=== PATIENT | female | born 1990 | race Caucasian/White ===

== ENCOUNTER → 2016-04-30 | Outpatient (CLI) | payer BC ==
[2016-04-30 16:05] LABS: CH 32.3; CHCM 35.6; HCT 39.2 % (34.0-46.0); HDW 2.95; HGB 13.3 gm/dL (11.4-16.0); MCH 31.1 pg (25.0-35.0); MCV 91.3 fL (80.0-100.0); Mean Platelet Volume 7.2; RBC 4.29 m/uL (3.80-5.40); RDW 13.4 % (11.5-15.5); WBC 9.2 k/uL (3.8-10.6)
[2016-04-30 16:16] LABS: Glucose 81 mg/dL (74-99); Non-African American GFR(MDRD) >60 (>60 ml/min/1.73 sqM)
[2016-04-30 16:47] LABS: Hepatitis B Surface Ag Index 0.07
[2016-05-01 06:48] LABS: HIV-1/HIV-2 Ab Screen NONREAC (NON REAC)
== END | disposition home or self-care (01) ==
LOC: LABWHC1 14:44
PROVIDERS: ATTEND Obstetrics & Gynecology
DX: Z34.00 Encounter for supervision of normal first pregnancy, unspecified trimester (principal); Z3A.00 Weeks of gestation of pregnancy not specified
CPT/HCPCS: 36415; 82565; 82947; 85027; 86762; 86777; 86778; 86780; 86850; 86900; 86901; 87340; 87389

== ENCOUNTER → 2016-07-09 | Outpatient (CLI) | payer BC ==
[2016-07-09 12:03] LABS: CHCM 34.5; HDW 2.97; HGB 12.5 gm/dL (11.4-16.0); MCH 32.7 pg (25.0-35.0); MCHC 33.9 g/dL (31.0-37.0); MCV 96.5 fL (80.0-100.0); Mean Platelet Volume 6.7; RBC 3.84 m/uL (3.80-5.40); RDW 13.7 % (11.5-15.5)
== END ==
LOC: LABWHC1 10:35
PROVIDERS: ATTEND Obstetrics & Gynecology
DX: Z34.02 Encounter for supervision of normal first pregnancy, second trimester (principal); Z3A.00 Weeks of gestation of pregnancy not specified
CPT/HCPCS: 36415; 82950; 85027

== ENCOUNTER 2016-08-24 22:22 | Emergency (ER) | payer BC, OTHER ==
[2016-08-24] MEDS ORDERED: METOCLOPRAMIDE 5 MG/ML 2 ML VIAL IVP STA (22:39)
[2016-08-24] MEDS ORDERED: SODIUM CHLORIDE 0.9% 1,000 ML IV STA (22:39)
[2016-08-24] MEDS ORDERED: diphenhydrAMINE 50 MG/ML 1 ML VIAL IVP STA (22:39)
--- NOTE | 2016-08-24 22:42 | ED ---
Headache HPI - General Chief Complaint: Headache Stated Complaint: swelling/headache/vomiting Time Seen by Provider: 08/24/16 22:35 Source: RN notes reviewed Mode of arrival: ambulatory Limitations: no limitations - History of Present Illness Initial Comments: 18-year-old female presents to the emergency department with a chief complaint of headache. Patient states she is 35 weeks . Patient states that she does have a history of migraines and states this is much like her normal migraine. Patient states she does have nausea with this symptom and she didn't vomit on the way here. Patient states that she has noticed some mild swelling to her lower extremities but she states nothing extreme. Patient states she is a . Patient states she has a having complications in this . Patient states she was concerned due to the mild headache so she thought that she should be evaluated. Patient denies any recent fever, chills, shortness of breath, chest pain, back pain, abdominal pain, nausea vomiting, numbness or tingling, dysuria or hematuria, constipation or diarrhea, visual changes, or any other current symptoms. - Related Data Home Medications Medication Instructions Recorded Confirmed Acetaminophen [Tylenol] 500 mg PO Q4-6H PRN 08/24/16 08/24/16 Acetaminophen [Tylenol] 650 mg PO Q4H PRN 08/24/16 08/24/16 Cephalexin [Keflex] 500 mg PO BID 08/24/16 08/24/16 Pnv,Calcium 72/Iron/Folic Acid 1 tab PO DAILY 08/24/16 08/24/16 [ Plus Tablet] Allergies Allergy/AdvReac Type Severity Reaction Status Date / Time No Known Allergies Allergy Verified 08/24/16 23:05 Review of Systems ROS Statement: Those systems with pertinent positive or pertinent negative responses have been documented in the HPI. ROS Other: All systems not noted in ROS Statement are negative. Past Medical History Past Medical History: No Reported History History of Any Multi-Drug Resistant Organisms: None Reported Past Surgical History: Adenoidectomy Past Psychological History: No Psychological Hx Reported Smoking Status: Never smoker Past Alcohol Use History: None Reported Past Drug Use History: None Reported General Exam - General Exam Comments Initial Comments: General: The patient is awake and alert, in no distress, and does not appear acutely ill. Eye: Pupils are equal, round and reactive to light, extra-ocular movements are intact; there is normal conjunctiva bilaterally. No signs of icterus. Ears, nose, mouth and throat: There are moist mucous membranes. Neck: The neck is supple, there is no tenderness. Cardiovascular: There is a regular rate and rhythm. No murmur, rub or gallop is appreciated. Respiratory: Lungs are clear to auscultation, respirations are non-labored, breath sounds are equal. No wheezes, stridor, rales, or rhonchi. Gastrointestinal: Soft, non-distended, non-tender abdomen without masses or organomegaly noted. There is no rebound or guarding present. No CVA tenderness. Bowel sounds are unremarkable. Back: There is no tenderness to palpation in the midline. There is no obvious deformity. No rashes noted. Musculoskeletal: Normal ROM, no tenderness, There is no pedal edema. There is no calf tenderness or swelling. Sensation intact. Pulses equal bilaterally 2+. Neurological: CN II-XII intact, There are no obvious motor or sensory deficits. Coordination appears grossly intact. Speech is normal. Skin: Skin is warm and dry and no rashes or lesions are noted. Psychiatric: Cooperative, appropriate mood & affect, normal judgment. Limitations: no limitations Course Vital Signs 08/24/16 08/24/16 08/25/16 22:23 23:37 00:33 Temperature 98.7 F 97.8 F 97.6 F Pulse Rate 102 H 75 71 Respiratory 18 18 18 Rate Blood Pressure 131/74 120/60 110/56 O2 Sat by Pulse 97 100 99 Oximetry Medical Decision Making - Medical Decision Making 26-year-old female presents emergency Department chief complaint of headache and . Patient does have a history of migraines and states this is much like her typical migraines. This time patient's headache has resolved. Patient has no protein in the urine. Patient is appropriate with blood pressure. This time she is feeling better with fluids and medications. This time we discussed close follow-up with MANAGER LSW. MANAGER LSW to evaluate the patient and states the patient is cleared to go home. This time she will be discharged. Patient is in agreement plan all questions have been answered. Patient does appear to have bacteria in the urine however she is currently on Keflex being treated for UTI. This time we will culture it and have patient continue her antibiotics. - Lab Data Result diagrams: 08/24/16 22:54 08/24/16 22:54 Lab Results 08/24/16 08/24/16 08/24/16 Range/Units 22:38 22:54 22:54 WBC 9.3 (3.8-10.6) k/uL RBC 4.05 (3.80-5.40) m/uL Hgb 13.3 (11.4-16.0) gm/dL Hct 38.5 (34.0-46.0) % MCV 95.2 (80.0-100.0) fL MCH 32.9 (25.0-35.0) pg MCHC 34.5 (31.0-37.0) g/dL RDW 13.8 (11.5-15.5) % Plt Count 250 (150-450) k/uL Neutrophils % 72 % Lymphocytes % 18 % Monocytes % 6 % Eosinophils % 1 % Basophils % 1 % Neutrophils # 6.7 (1.3-7.7) k/uL Lymphocytes # 1.7 (1.0-4.8) k/uL Monocytes # 0.6 (0-1.0) k/uL Eosinophils # 0.1 (0-0.7) k/uL Basophils # 0.1 (0-0.2) k/uL Sodium 140 (137-145) mmol/L Potassium 4.3 (3.5-5.1) mmol/L Chloride 109 H (98-107) mmol/L Carbon Dioxide 24 (22-30) mmol/L Anion Gap 7 mmol/L BUN 6 L (7-17) mg/dL Creatinine 0.60 (0.52-1.04) mg/dL Est GFR (MDRD) Af Amer >60 (>60 ml/min/1.73 sqM) Est GFR (MDRD) Non-Af >60 (>60 ml/min/1.73 sqM) Glucose 82 (74-99) mg/dL Calcium 9.3 (8.4-10.2) mg/dL Phosphorus 3.6 (2.5-4.5) mg/dL Magnesium 1.9 (1.6-2.3) mg/dL Total Bilirubin 0.6 (0.2-1.3) mg/dL AST 21 (14-36) U/L ALT 27 (9-52) U/L Alkaline Phosphatase 138 H (38-126) U/L Total Protein 6.2 L (6.3-8.2) g/dL Albumin 3.3 L (3.5-5.0) g/dL Urine Color Yellow Urine Appearance Cloudy H (Clear) Urine pH 7.5 (5.0-8.0) Ur Specific [place] 1.007 (1.001-1.035) Urine Protein Negative (Negative) Urine Glucose (UA) Negative (Negative) Urine Ketones Negative (Negative) Urine Blood Negative (Negative) Urine Nitrite Negative (Negative) Urine Bilirubin Negative (Negative) Urine Urobilinogen <2.0 (<2.0) mg/dL Ur Leukocyte Esterase Large H (Negative) Urine RBC 6 H (0-5) /hpf Urine WBC 22 H (0-5) /hpf Ur Squamous Epith Cells 8 H (0-4) /hpf Urine Bacteria Few H (None) /hpf Disposition Clinical Impression: Headache Disposition: HOME SELF-CARE Condition: Stable Instructions: Acute Headache (ED) Additional Instructions: Please use medication as discussed. Please follow up with family doctor if symptoms have not improved over the next two days. Please return to the emergency room if your symptoms increase or worsen or for any other concerns. Referrals: Shelly Mendoza MD [STAFF PHYSICIAN] - 1-2 days Time of Disposition: 00:43
[2016-08-24 22:50] VITALS: RESP 18
[2016-08-24 23:14] LABS: Basophils # (A) 0.1 k/uL (0-0.2); Basophils % (A) 1 %; CH 33.7; CHCM 35.7; Eosinophils # (A) 0.1 k/uL (0-0.7); Eosinophils % (A) 1 %; HCT 38.5 % (34.0-46.0); HDW 3.06; HGB 13.3 gm/dL (11.4-16.0); Luc # (Auto) 0.19; Luc % (Auto) 2; Lymphocytes # (A) 1.7 k/uL (1.0-4.8); Lymphocytes % (A) 18 %; MCH 32.9 pg (25.0-35.0); MCHC 34.5 g/dL (31.0-37.0); MCV 95.2 fL (80.0-100.0); Mean Platelet Volume 7.1; Monocytes # (A) 0.6 k/uL (0-1.0); Monocytes % (A) 6 %; Neutrophils # (A) 6.7 k/uL (1.3-7.7); Neutrophils % (A) 72 %; RBC 4.05 m/uL (3.80-5.40); RDW 13.8 % (11.5-15.5); WBC 9.3 k/uL (3.8-10.6); WBC (Perox) 9.47
[2016-08-24 23:24] LABS: ALT 27 U/L (9-52); AST 21 U/L (14-36); Alkaline Phosphatase 138 U/L (38-126); Anion Gap 7 mmol/L; Blood Urea Nitrogen 6 mg/dL (7-17); Calcium 9.3 mg/dL (8.4-10.2); Carbon Dioxide 24 mmol/L (22-30); Chloride 109 mmol/L (98-107); Glucose 82 mg/dL (74-99); Magnesium 1.9 mg/dL (1.6-2.3); Non-African American GFR(MDRD) >60 (>60 ml/min/1.73 sqM); Phosphorous 3.6 mg/dL (2.5-4.5); Potassium 4.3 mmol/L (3.5-5.1); Sodium 140 mmol/L (137-145); Total Bilirubin 0.6 mg/dL (0.2-1.3); Total Protein 6.2 g/dL (6.3-8.2)
[2016-08-25 00:22] LABS: Appearance,Urine Cloudy (Clear); Bacteria,Urine Few /hpf; Bilirubin,Urine Negative (Negative); Glucose,Urine (UA) Negative (Negative); Ketones,Urine Negative (Negative); Leukocyte Esterase,Urine Large (Negative); Nitrite,Urine Negative (Negative); PH, Urine 7.5 (5.0-8.0); Particle Count 20809; Protein,Urine Negative (Negative); RBC,Urine 6 /hpf (0-5); Specific Gravity,Urine 1.007 (1.001-1.035); Squamous Epithelial Cell,Urine 8 /hpf (0-4); UA Billing (MACRO vs. MICRO) MICRO; Urobilinogen,Urine <2.0 mg/dL (<2.0); WBC,Urine 22 /hpf (0-5)
[2016-08-25 00:38] VITALS: BP 110/56; PULSE 71; TEMP 97.6
== END 2016-08-25 00:54 | disposition home or self-care (01) ==
LOC: EC 22:22
DX: O99.89 Other specified diseases and conditions complicating pregnancy, childbirth and the puerperium (principal); O21.2 Late vomiting of pregnancy; R51 Headache; Z3A.35 35 weeks gestation of pregnancy; Z79.899 Other long term (current) drug therapy
CPT/HCPCS: 36415; 80053; 83735; 84100; 85025; 81001; 99284; 96374; 96375; 96361 ×2; J1200; J2765

== ENCOUNTER 2016-09-23 03:00 | Inpatient (IN) | payer BC, OTHER ==
[2016-09-23] MEDS ORDERED: METHYLERGONOVINE 0.2 MG/ML 1 ML AMP IM PRN (03:55)
[2016-09-23] MEDS ORDERED: TERBUTALINE 1 MG/ML VIAL SQ PRN (03:55)
[2016-09-23] MEDS ORDERED: LIDOCAINE 1% (PF) 10 MG/ML (30 ML SDV) SQ PRN (03:55)
[2016-09-23] MEDS ORDERED: OXYTOCIN 10 UNIT/ML 1 ML VIAL IM PRN (03:55)
[2016-09-23] MEDS ORDERED: CARBOPROST TROMETHAMINE 250 MCG/ML 1 ML AMP IM PRN (03:55)
[2016-09-23] MEDS ORDERED: OXYTOCIN 20 UNITS/1000 ML NS 1,000 ML IV SCH (04:00)
[2016-09-23 04:11] LABS: Basophils # (A) 0.1 k/uL (0-0.2); Basophils % (A) 1 %; CH 33.6; CHCM 36.9; Eosinophils # (A) 0.2 k/uL (0-0.7); Eosinophils % (A) 2 %; HCT 37.4 % (34.0-46.0); HDW 3.02; HGB 13.8 gm/dL (11.4-16.0); Luc # (Auto) 0.16; Luc % (Auto) 2; Lymphocytes # (A) 1.7 k/uL (1.0-4.8); Lymphocytes % (A) 16 %; MCH 33.9 pg (25.0-35.0); MCV 91.5 fL (80.0-100.0); Mean Platelet Volume 7.5; Monocytes # (A) 0.6 k/uL (0-1.0); Monocytes % (A) 6 %; Neutrophils # (A) 7.9 k/uL (1.3-7.7); Neutrophils % (A) 74 %; RBC 4.09 m/uL (3.80-5.40); RDW 13.8 % (11.5-15.5); WBC 10.6 k/uL (3.8-10.6); WBC (Perox) 10.12
[2016-09-23] MEDS: LACTATED RINGERS 1,000 ML IV SCH ×4 (04:15→13:14)
[2016-09-23 04:20] VITALS: BMI 37.1
[2016-09-23] MEDS ORDERED: BUTORPHANOL 1 MG/ML 1 ML VIAL IV PRN (07:24)
[2016-09-23] MEDS ORDERED: BUPIVACAINE (PF) 0.25% 30 ML VIAL ONE (09:35)
[2016-09-23] MEDS ORDERED: fentaNYL (PF) 50 MCG/ML 5 ML AMP ONE (09:35)
[2016-09-23] MEDS ORDERED: SODIUM CHLORIDE 0.9% 100 ML BAG ONE (09:35)
[2016-09-23] MEDS ORDERED: BUPIVACAINE (PF) 0.25% 25 ML, fentaNYL (PF) 200 MCG in SODIUM CHLORIDE 0.9% 71 ML EPIDURAL ONE (10:02)
[2016-09-23] MEDS ORDERED: LANOLIN CREAM 5 GM TUBE TOPICAL PRN (18:04)
[2016-09-23] MEDS ORDERED: diphenhydrAMINE 25 MG CAP PO PRN (18:04)
[2016-09-23] MEDS ORDERED: ZOLPIDEM 5 MG TAB PO PRN (18:04)
[2016-09-23] MEDS ORDERED: BENZOCAINE/MENTHOL SPRAY 1 GM/SPRAY AEROSOL TOPICAL PRN (18:04)
[2016-09-23] MEDS ORDERED: SIMETHICONE 80 MG CHEWABLE PO PRN (18:04)
[2016-09-23] MEDS ORDERED: diphenhydrAMINE 50 MG CAP PO PRN (18:04)
[2016-09-23] MEDS ORDERED: diphenhydrAMINE 50 MG/ML 1 ML VIAL IVP PRN ×2 (18:04)
[2016-09-23] MEDS ORDERED: ACETAMINOPHEN TAB 325 MG TAB PO PRN (18:04)
[2016-09-23] MEDS ORDERED: Acetaminophen-Codeine 300-30mg TAB PO PRN ×2 (18:04)
[2016-09-23] MEDS ORDERED: WITCH HAZEL 1 EACH MED..PAD TOPICAL PRN (18:04)
[2016-09-23] MEDS ORDERED: HYDROCORTISONE 2.5% RECTAL CREAM 30 GM TUBE RECTAL PRN (18:04)
--- NOTE | 2016-09-23 18:06 | P.HPOB ---
History of Present Illness H&P Date: 09/23/16 Chief Complaint: Intrauterine at 39 weeks spontaneous rupture of membranes Latisha is a 26-year-old at 39 weeks gestation who arrives complaining of spontaneous rupture membranes. Her water broke at approximately 2:30 in the morning and she is here for augmentation of labor for Pitocin due to no contractions following rupture membranes. Her Precis course otherwise was unremarkable and she is feeling well at this time. She did pass her 1 hour Glucola screen. Blood type was B+ Rh antibody was negative. Rubella was immune. Hepatitis B surface antigen RPR and GBS were all negative. On physical exam her vital signs are stable and afebrile. Heart regular, lungs clear, extremities without pain. Abdomen is soft and gravid. heart tones 130s 2050s and have been reactive. Assessment intrauterine at term. Plan epidural for analgesia expect spontaneous vaginal delivery. Past Medical History Past Medical History: No Reported History History of Any Multi-Drug Resistant Organisms: None Reported Past Surgical History: Adenoidectomy Additional Past Surgical History / Comment(s): [place] tooth surgery Past Anesthesia/Blood Transfusion Reactions: No Reported Reaction Past Psychological History: No Psychological Hx Reported Smoking Status: Never smoker Past Alcohol Use History: None Reported Past Drug Use History: None Reported - Past Family History Mother Additional Family Medical History / Comment(s): Colitis and Chrons Medications and Allergies Home Medications Medication Instructions Recorded Confirmed Type Pnv,Calcium 72/Iron/Folic Acid 1 tab PO DAILY 08/24/16 09/23/16 History [ Plus Tablet] Allergies Allergy/AdvReac Type Severity Reaction Status Date / Time No Known Allergies Allergy Verified 09/23/16 03:05 Exam Osteopathic Statement: *. No significant issues noted on an osteopathic structural exam other than those noted in the History and Physical/Consult. - Vital Signs Vital signs: Vital Signs Temp Pulse Resp BP 09/23/16 17:56 99.4 F 114 H 18 151/67 09/23/16 03:10 97.0 F L 90 16 143/84 Intake and Output 09/23/16 09/23/16 09/23/16 06:59 14:59 22:59 Other: # Voids 2 Weight 92.079 kg Results Result Diagrams: 09/23/16 03:50 Abnormal Lab Results - Last 24 Hours (Table) 09/23/16 Range/Units 03:50 Neutrophils # 7.9 H (1.3-7.7) k/uL
--- NOTE | 2016-09-23 18:09 | P.PROBDLV ---
Vaginal Delivery Note - . Vaginal Delivery Note: Patient progressed complete and pushed with spontaneous vaginal delivery of a viable male over a secondary midline laceration with bilateral vaginal wall lacerations. During deliver the head a large quantity of thick meconium was noted. No meconium had been noted during the labor process and clear fluid had been noted earlier in the day. Once baby's head was delivered anterior posterior shoulders were delivered with gentle gentle downward and upward traction followed by the remainder the baby. Mouth and nares were then bulb suctioned umbilical cord clamped cut usual fashion an nursery personnel was present to assume care. Special nursery was called due to meconium as was anesthesia. However as there was no prior morning that there was meconium present there was limited that anesthesia was able to do. Baby is in special care nursery being evaluated at this time. Following delivery of the baby the Center was then delivered intact and Pitocin was added to the IV. Second- degree midline laceration was then repaired with 3-0 Vicryl following 1% Xylocaine for analgesia in usual fashion. 2 lateral vaginal wall lacerations were repaired in interrupted fashion following 1% Xylocaine for analgesia with 3 -0 Vicryl. This was done to bring together the skin but also at the distal part of the laceration it was relatively deep and a deep suture was needed to bring the skin together correctly. Once this was accomplished needle counts and sponge counts were correct and she was noted to be stable. Baby get is in special care nursery and scores and weight are currently pending.
[2016-09-23] MEDS: SENNOSIDES-DOCUSATE SODIUM 1 EACH TAB PO SCH (19:19)
[2016-09-23] MEDS: IBUPROFEN 600 MG TAB PO PRN (19:19)
[2016-09-24] MEDS: IBUPROFEN 600 MG TAB PO PRN ×3 (04:18→23:39)
--- NOTE | 2016-09-24 06:46 | P.PNOBGVD ---
Subjective - Subjective Principal diagnosis: day 1 Interval history: Overall Brittani is doing very well. She is able to ambulate, void, and she is tolerating a diet. Her only real complaint is swelling in her left lower extremity. On physical exam vital signs are otherwise stable and she is afebrile. Heart regular, lungs clear, extremities are without pain however, left lower extremity from just above the knee down reveals 2-3+ pitting edema whereas the right side only has 1+ pitting edema. She voices no complaints of pain. There is no redness or other defined swelling other generalized edema. Most likely was due to positioning that she was in yesterday she was on her left side all through much of labor due to a one-sided epidural. She is also found laying on her left side this morning. We'll plan though to were a Doppler of the left lower extremity as a precaution as she is at significant increased risk of DVT due to and limited mobility of the last 24-36 hours. Abdomen is otherwise soft uterus is firm below the umbilicus. Assessment day 1. Plan continue care with Doppler the lower extremity Patient reports: Reports appetite normal, Reports voiding normally, Reports pain well controlled, Reports ambulating normally : in NICU Objective - Latest Vital Signs Latest vital signs: Vital Signs Temp Pulse Resp BP 09/24/16 04:00 97.7 F 84 16 115/70 09/23/16 23:56 97.9 F 99 16 139/68 09/23/16 20:00 98.1 F 110 H 16 116/62 09/23/16 19:26 126 H 16 126/61 09/23/16 18:56 98.1 F 113 H 17 137/68 09/23/16 18:41 127 H 17 127/67 09/23/16 18:26 110 H 17 135/65 09/23/16 18:11 113 H 18 138/64 09/23/16 17:56 99.4 F 114 H 18 151/67 Intake and Output 09/23/16 09/23/16 09/24/16 14:59 22:59 06:59 Intake Total 1000 Output Total 700 Balance 300 Intake: IV 1000 Lactated Ringers 1,000 ml 1000 @ 125 mls/hr IV .Q8H JESUS Rx#:[id number] Output: Urine 700 Straight 350 Other: # Voids 1 2
--- NOTE | 2016-09-24 08:34 | US ---
EXAMINATION TYPE: US venous doppler duplex LE LT DATE OF EXAM: 09/24/2016 8:15 AM COMPARISON: NONE CLINICAL HISTORY: Pain and swelling SIDE PERFORMED: Left TECHNIQUE: The lower extremity deep venous system is examined utilizing real time linear array sonog josee with graded compression, doppler sonography and color-flow sonography. VESSELS IMAGED: External Iliac Vein (EIV) Common Femoral Vein Deep Femoral Vein Greater Saphenous Vein * Femoral Vein Popliteal Vein Small Saphenous Vein * Proximal Calf Veins (* superficial vessels) Left Leg: Negative for DVT IMPRESSION: 1. No diagnostic evidence of DVT as visualized
[2016-09-24] MEDS: SENNOSIDES-DOCUSATE SODIUM 1 EACH TAB PO SCH ×2 (09:48→20:30)
[2016-09-25 09:50] VITALS: BP 140/83; PULSE 96; RESP 18; TEMP 98
[2016-09-25] MEDS: SENNOSIDES-DOCUSATE SODIUM 1 EACH TAB PO SCH (09:50)
--- NOTE | 2016-09-25 10:28 | P.DS ---
Providers Date of admission: 09/23/16 03:34 Expected date of discharge: 09/25/16 Attending physician: Shahab Wyman Primary care physician: Stated None Hospital Course: This is a 26-year-old female 1 para 0 at 39 and one sevenths weeks who presented with spontaneous rupture of membranes and delivered vaginally a viable male on 09/23/2016 with scores of 4 at 1 minute, 7 at 5 minutes and 9 at 10 minutes and infant weight of 6 lbs. 9 oz. Her course has been essentially uncomplicated. She is breast-feeding and pumping her breast milk since baby is in the nursery. She did have some swelling and pain in her leg but Doppler was performed and was negative. Vital signs are stable. Abdomen is soft with fundus firm and nontender. Extremities show negative Homans. Impression is status post vaginal delivery day #2. Plan is to discharge home today. Prescriptions have been written by Dr. Wyman along with a breast pump. She is advised to follow up in the office with Dr. Wyman in 6 weeks. Routine instructions are given. She is advised to call the office if she has any further questions or concerns prior to her appointment time. Procedures: Spontaneous vaginal delivery of a viable male on 09/23/2016 Patient Condition at Discharge: Stable Plan - Discharge Summary New Discharge Prescriptions: New Acetaminophen-Codeine 300-30mg [Tylenol #3] 1 tab PO Q4H PRN #30 tablet PRN Reason: Pain Ibuprofen [Motrin] 600 mg PO Q6HR PRN #30 tab PRN Reason: Pain No Action Pnv,Calcium 72/Iron/Folic Acid [ Plus Tablet] 1 tab PO DAILY Discharge Medication List Pnv,Calcium 72/Iron/Folic Acid [ Plus Tablet] 1 tab PO DAILY 08/24/16 [ History] Acetaminophen-Codeine 300-30mg [Tylenol #3] 1 tab PO Q4H PRN #30 tablet [Rx] Ibuprofen [Motrin] 600 mg PO Q6HR PRN #30 tab 09/24/16 [Rx] Follow up Appointment(s)/Referral(s): Shahab Wyman DO [Doctor of Osteopathic Medicine] - 6 Weeks Activity/Diet/Wound Care/Special Instructions: No heavy lifting, limit stairs and driving, and pelvic rest. If any high temperatures, heavy bleeding, or severe pain call us Discharge Disposition: HOME SELF-CARE
--- NOTE | 2016-09-26 07:15 | P.MSEPDOC ---
Presenting Problems - Arrival Data Date of Arrival on Unit: 09/23/16 Time of Arrival on Unit: 03:38 Mode of Transport: Wheelchair - Complaint OB-Reason for Admission/Chief Complaint: Rule Out SROM Medical History - Information : 1 Para: 0 Term: 0 : 0 Abortions: Spontaneous or Elective: 0 Number of Living Children: 0 - Gestational Age Expected Date of Delivery: 09/29/16 Gestational Age by YOEL (wks/days): 39 Weeks and 4 Days Review of Systems - Review of Systems Constitutional: No problems Breast: No problems ENT: No problems Cardiovascular: No problems Respiratory: No problems Gastrointestinal: No problems Genitourinary: No problems Musculoskeletal: No problems Neurological: No problems Skin: No problems Vital Signs - Temperature Temperature: 98.0 F Temperature Source: Oral - Pulse Pulse Oximetery Pulse Rate: 96 Pulse Assessment Method: Automatic Cuff - Respirations Respiratory Rate: 18 Oxygen Delivery Method: Room Air - Blood Pressure Sitting Blood Pressure: 140/83 Blood Pressure Mean: 102 Blood Pressure Source: Automatic Cuff Medical Screen Scoring (Pre) - Cervical Exam Dilation: 1-3 cm = 1 Effacement: More than 50% = 2 Membranes: Ruptured = 3 - Uterine Contractions Frequency: > or = 36 weeks =2 Duration: > 40 seconds = 2 Intensity: N/A - Maternal Vital Signs Maternal Temperature: N/A Maternal Blood Pressure: N/A Signs of Preeclampsia: N/A Maternal Respirations: N/A - Maternal Trauma Maternal Trauma: N/A - Assessment Baseline FHR: 120 Heart Rate - NICHD Category: Category I (Normal) = 0 NST: Reactive Position: N/A Station: N/A - Total Score Total Score (Pre): 10 - Level of Risk Level of Risk: High (10+) Medical Screen Scoring (Post) - Cervical Exam Dilation: 1-3 cm = 1 Effacement: More than 50% = 2 Membranes: Ruptured = 3 - Uterine Contractions Frequency: > or = 36 weeks =2 Duration: > 40 seconds = 2 Intensity: N/A - Maternal Vital Signs Maternal Temperature: N/A Maternal Blood Pressure: N/A Signs of Preeclampsia: N/A Maternal Respirations: N/A - Maternal Trauma Maternal Trauma: N/A - Assessment Heart Rate: 120 Heart Rate - NICHD Category: Category I (Normal) = 0 NST: Reactive Position: N/A Station: N/A - Total Score Total Score (Post): 10 - Post Treatment Level of Risk Post Treatment Level of Risk: High (10+) Physician Notification (Post) - Physician Notified Physician Notified Date: 09/23/16 Physician Notified Time: 03:38 - Notification Comment Comment: Admit patient for labor. Disposition - Disposition OB Disposition: Admit, LDRP Suite Transferred to:: Suite 1 Discharge Date: 09/25/16 Discharge Time: 13:37 I agree with the RN Medical Screening Exam: Yes Risk & Benefit of care provided described in d/c instruction: Yes Diagnosis: PROM (admitted and delivered)
== END 2016-09-25 13:42 | disposition home or self-care (01) | DRG 775 ==
LOC: FBPOP 03:00 → 4FBP 03:34
PROVIDERS: ADMIT Obstetrics & Gynecology; ATTEND Obstetrics & Gynecology
PROC: 10E0XZZ Delivery of Products of Conception, External Approach (ICD-10-PCS; principal; 2016-09-23)
DX: O77.0 Labor and delivery complicated by meconium in amniotic fluid (principal); O71.4 Obstetric high vaginal laceration alone; O99.89 Other specified diseases and conditions complicating pregnancy, childbirth and the puerperium; M79.89 Other specified soft tissue disorders; Z37.0 Single live birth; Z3A.39 39 weeks gestation of pregnancy
CPT/HCPCS: 59025; 84112; 85025; 88307; 99213

== ENCOUNTER 2018-07-09 11:44 | Inpatient (IN) | payer BC, OTHER ==
[2018-07-09] MEDS ORDERED: CARBOPROST TROMETHAMINE 250 MCG/ML 1 ML AMP IM PRN (12:58)
[2018-07-09] MEDS ORDERED: METHYLERGONOVINE 0.2 MG/ML 1 ML AMP IM PRN (12:58)
[2018-07-09] MEDS ORDERED: OXYTOCIN 10 UNIT/ML 1 ML VIAL IM PRN (12:58)
[2018-07-09] MEDS ORDERED: TERBUTALINE 1 MG/ML VIAL SQ PRN (12:58)
[2018-07-09] MEDS ORDERED: LIDOCAINE 0.5% (PF) 5 MG/ML (50 ML SDV) SQ PRN (12:58)
[2018-07-09] MEDS: LACTATED RINGERS 1,000 ML IV SCH ×3 (13:25→15:10)
[2018-07-09 13:52] VITALS: BMI 37.1
[2018-07-09 13:52] LABS: Basophils % (A) 0 %; Eosinophils # (A) 0.1 k/uL (0-0.7); Eosinophils % (A) 1 %; HCT 41.6 % (34.0-46.0); HGB 13.6 gm/dL (11.4-16.0); Lymphocytes # (A) 1.3 k/uL (1.0-4.8); Lymphocytes % (A) 12 %; MCH 28.7 pg (25.0-35.0); MCHC 32.6 g/dL (31.0-37.0); MCV 87.9 fL (80.0-100.0); Mean Platelet Volume 7.9; Monocytes # (A) 0.6 k/uL (0-1.0); Monocytes % (A) 6 %; Neutrophils # (A) 8.8 k/uL (1.3-7.7); Neutrophils % (A) 81 %; Platelet Count 253 k/uL (150-450); RBC 4.73 m/uL (3.80-5.40); RDW 15.1 % (11.5-15.5); WBC 10.9 k/uL (3.8-10.6)
[2018-07-09] MEDS ORDERED: SODIUM CHLORIDE 0.9% 100 ML BAG ONE (14:36)
[2018-07-09] MEDS ORDERED: ROPIVACAINE 5MG/ML 20ML VIAL ONE (14:36)
[2018-07-09] MEDS ORDERED: fentaNYL (PF) 50 MCG/ML 5 ML AMP ONE (14:36)
--- NOTE | 2018-07-09 16:37 | P.GSCN ---
History of Present Illness Consult date: 07/09/18 Reason for Consult: Mass of the anterior maxilla Requesting physician: Shahab Wyman History of present illness: 28-year-old female currently in labor brought to the attention of her physician a mass of anterior maxilla. She reports no pain and lesions been present approximately one year she does report increased size over the past 3-4 weeks. Past Medical History Past Medical History: No Reported History History of Any Multi-Drug Resistant Organisms: None Reported Past Surgical History: Adenoidectomy Additional Past Surgical History / Comment(s): [place] tooth surgery Past Anesthesia/Blood Transfusion Reactions: No Reported Reaction Past Psychological History: No Psychological Hx Reported Smoking Status: Never smoker Past Alcohol Use History: None Reported Past Drug Use History: None Reported - Past Family History Mother Additional Family Medical History / Comment(s): Colitis and Chrons Medications and Allergies Home Medications Medication Instructions Recorded Confirmed Type Pnv,Calcium 72/Iron/Folic Acid 1 tab PO DAILY 08/24/16 07/09/18 History [ Plus Tablet] Allergies Allergy/AdvReac Type Severity Reaction Status Date / Time No Known Allergies Allergy Verified 07/09/18 12:02 Surgical - Exam Vital Signs Temp Pulse Resp BP Pulse Ox 97.3 F L 75 16 143/81 100 07/09/18 12:59 07/09/18 12:59 07/09/18 12:59 07/09/18 12:59 07/09/18 12:59 - ENT Patient sitting up in bed with no apparent distress. Currently 8-9 cm dilated per her physician with epidural and no pain. The patient is able to open her mouth completely taper had back allow for easy visualization of the 1 cm x 2 cm verrucous granulomatous mass appearing to arise from a stalk between teeth numbers 8 and 9 at her palate. It is conformed to the shape of the maxilla in this area. The lesion is slightly hyperemic with no active bleeding noted at the lesion. Is nontender to palpation. No difficulty breathing or swallowing. Of note the patient has a grossly carious tooth the upper right and lower left appeared to be some gingival bleeding adjacent to the tooth on the upper right the patient reports eating ice recently. Results - Labs 07/09/18 13:20 Abnormal Lab Results - Last 24 Hours (Table) 07/09/18 Range/Units 13:20 WBC 10.9 H (3.8-10.6) k/uL Neutrophils # 8.8 H (1.3-7.7) k/uL Assessment and Plan Assessment: lesion most likely represents a pyogenic granuloma which was benign condition known to increase in size during her . This could also represent some malingering pathology of another kind and I expressed my concerns that the patient have a biopsy done at her earliest convenience. Plan: Patient agreed to come in for a biopsy after giving . The patient has been seen in our office previously. Due to her impending hectic schedule I recommend waiting no longer than 2-3 weeks. And the patient was amenable to this time. Time with Patient: Less than 30
[2018-07-09] MEDS ORDERED: diphenhydrAMINE 25 MG CAP PO PRN (18:24)
[2018-07-09] MEDS ORDERED: WITCH HAZEL 1 EACH MED..PAD TOPICAL PRN (18:24)
[2018-07-09] MEDS ORDERED: HYDROCORTISONE 2.5% RECTAL CREAM 30 GM TUBE RECTAL PRN (18:24)
[2018-07-09] MEDS ORDERED: SIMETHICONE 80 MG CHEWABLE PO PRN (18:24)
[2018-07-09] MEDS ORDERED: ZOLPIDEM 5 MG TAB PO PRN (18:24)
[2018-07-09] MEDS ORDERED: HYDROcodone/APAP 5-325MG 1 EACH TAB PO PRN (18:24)
[2018-07-09] MEDS ORDERED: diphenhydrAMINE 50 MG CAP PO PRN (18:24)
[2018-07-09] MEDS ORDERED: LANOLIN CREAM 5 GM TUBE TOPICAL PRN (18:24)
[2018-07-09] MEDS ORDERED: BENZOCAINE/MENTHOL SPRAY 1 GM/SPRAY AEROSOL TOPICAL PRN (18:24)
[2018-07-09] MEDS ORDERED: ACETAMINOPHEN TAB 325 MG TAB PO PRN (18:24)
[2018-07-09] MEDS ORDERED: diphenhydrAMINE 50 MG/ML 1 ML VIAL IVP PRN ×2 (18:24)
--- NOTE | 2018-07-09 18:27 | P.HPOB ---
History of Present Illness H&P Date: 07/09/18 Chief Complaint: Intrauterine at term: Active labor Patient is a 28-year-old at 39 weeks 3 days' gestation who arrives in active labor making cervical change. She relates that the contractions began last night dissipated the morning but through early afternoon began getting stronger and were every 3-4 minutes. She was making cervical change and was therefore admitted for same. She plans epidural for analgesia. We'll plan artificial rupture membranes once epidural is placed. Her course0 . Was complicated by suspicion for marginal previa as well as cord plexus cyst, she did see maternal medicine and these were resolved. It was noted on physical exam today that she had a large approximately 2 cm mass behind her front teeth and in her gumline and therefore a an oral surgeon was consult. She relates to me at the lesion has been there for a year but she has not told anybody at all. She did not inform you this during the , however she also notes that was only about the size of P until the last 2-3 weeks when it is rapidly grown in size. On physical exam otherwise, heart regular, lungs clear, extremities are without pain. Abdomen is soft and gravid uterus is noted. She was dilated to 5 cm at time of admission. Heart tracings are category 1. Assessment intrauterine at term. Plan expect spontaneous vaginal delivery. Past Medical History Past Medical History: No Reported History History of Any Multi-Drug Resistant Organisms: None Reported Past Surgical History: Adenoidectomy Additional Past Surgical History / Comment(s): [place] tooth surgery Past Anesthesia/Blood Transfusion Reactions: No Reported Reaction Past Psychological History: No Psychological Hx Reported Smoking Status: Never smoker Past Alcohol Use History: None Reported Past Drug Use History: None Reported - Past Family History Mother Additional Family Medical History / Comment(s): Colitis and Chrons Medications and Allergies Home Medications Medication Instructions Recorded Confirmed Type Pnv,Calcium 72/Iron/Folic Acid 1 tab PO DAILY 08/24/16 07/09/18 History [ Plus Tablet] Allergies Allergy/AdvReac Type Severity Reaction Status Date / Time No Known Allergies Allergy Verified 07/09/18 12:02 Exam Osteopathic Statement: *. No significant issues noted on an osteopathic structural exam other than those noted in the History and Physical/Consult. Vital Signs Temp Pulse Resp BP Pulse Ox 07/09/18 13:47 98.0 F 83 16 135/78 100 07/09/18 12:59 97.3 F L 75 16 143/81 100 Intake and Output 07/09/18 07/09/18 07/09/18 06:59 14:59 22:59 Intake Total 1000 Balance 1000 Intake: IV 1000 Lactated Ringers 1,000 ml 1000 @ 125 mls/hr IV .Q8H [facility] Rx#:[id number] Other: Weight 92.079 kg Results Result Diagrams: 07/09/18 13:20 Abnormal Lab Results - Last 24 Hours (Table) 07/09/18 Range/Units 13:20 WBC 10.9 H (3.8-10.6) k/uL Neutrophils # 8.8 H (1.3-7.7) k/uL
--- NOTE | 2018-07-09 18:29 | P.PROBDLV ---
Vaginal Delivery Note - . Vaginal Delivery Note: Patient progressed to complete and pushed with spontaneous vaginal delivery of a viable male over a second degree perineal laceration. Following delivery of the head nuchal cord 3 was noted and easily reduced. Once this was accomplished anterior and posterior shoulders were delivered without difficulty. Baby was delivered from right occiput anterior position. Once baby was delivered mouth nares were bulb suctioned and baby was placed on mother's abdomen where the umbilical cord was allowed to pulsate for 30 seconds prior to clamping and cutting. Once this was accomplished nursery personnel was present to assume care. Placenta was then delivered intact and Pitocin was added to the IV. scores were 8 and 9 at one and 5 minutes respectively and the weight was 7 lbs. 4 oz. Second-degree perineal laceration was then repaired in usual fashion with 3-0 Vicryl following 1% Xylocaine for analgesia. It is noted there is approximately we a marble-sized hematoma formed at the right labial margin is not expanding and will plan to apply ice to this area. She also has a right avulsion but is not bleeding and will therefore be left alone.
[2018-07-09] MEDS ORDERED: OXYTOCIN 20 UNITS/1000 ML NS 1,000 ML IV SCH (18:30)
[2018-07-10] MEDS: SENNOSIDES-DOCUSATE SODIUM 1 EACH TAB PO SCH ×2 (00:58→08:14)
[2018-07-10 06:48] LABS: Basophils % (A) 0 %; Eosinophils % (A) 0 %; HCT 33.6 % (34.0-46.0); Lymphocytes # (A) 1.7 k/uL (1.0-4.8); Lymphocytes % (A) 13 %; MCH 28.5 pg (25.0-35.0); MCHC 32.8 g/dL (31.0-37.0); MCV 86.8 fL (80.0-100.0); Mean Platelet Volume 7.8; Monocytes # (A) 0.6 k/uL (0-1.0); Monocytes % (A) 5 %; Neutrophils # (A) 10.3 k/uL (1.3-7.7); Neutrophils % (A) 81 %; Platelet Count 204 k/uL (150-450); RBC 3.87 m/uL (3.80-5.40); RDW 15.3 % (11.5-15.5); WBC 12.7 k/uL (3.8-10.6)
[2018-07-10] MEDS: IBUPROFEN 600 MG TAB PO PRN ×2 (08:14→20:52)
--- NOTE | 2018-07-10 08:42 | P.PNOBGVD ---
Subjective - Subjective Principal diagnosis: pp day 1 Interval history: doing very well other than generalized soreness Patient reports: Reports appetite normal, Reports voiding normally, Reports pain well controlled, Reports ambulating normally : doing well Objective - Latest Vital Signs Latest vital signs: Vital Signs Temp Pulse Resp BP Pulse Ox 07/10/18 04:00 98.6 F 98 16 122/70 07/10/18 00:00 98.1 F 101 H 16 121/69 98 07/09/18 20:24 99.2 F 99 16 137/66 07/09/18 20:00 99.0 F 91 16 133/63 07/09/18 19:54 91 16 133/63 07/09/18 19:24 100 16 148/72 07/09/18 19:09 98.7 F 104 H 16 123/61 07/09/18 18:54 95 16 122/62 07/09/18 18:39 98.2 F 101 H 16 126/59 07/09/18 18:24 110 H 18 130/60 07/09/18 13:47 98.0 F 83 16 135/78 100 07/09/18 12:59 97.3 F L 75 16 143/81 100 Intake and Output 07/09/18 07/10/18 07/10/18 22:59 06:59 14:59 Other: # Voids 1 1 - Exam Lungs: bilateral: normal Chest: Normal S1, Normal S2 Extremities: Present: normal Abdomen: Present: normal appearance, soft Uterus: Present: normal, firm - Labs Labs: Abnormal Lab Results - Last 24 Hours (Table) 07/09/18 07/10/18 Range/Units 13:20 06:30 WBC 10.9 H 12.7 H (3.8-10.6) k/uL Hgb 11.0 L (11.4-16.0) gm/dL Hct 33.6 L (34.0-46.0) % Neutrophils # 8.8 H 10.3 H (1.3-7.7) k/uL
[2018-07-11] MEDS: SENNOSIDES-DOCUSATE SODIUM 1 EACH TAB PO SCH ×2 (01:38→09:14)
--- NOTE | 2018-07-11 08:38 | P.DS ---
Providers Date of admission: 07/09/18 12:58 Expected date of discharge: 07/11/18 Attending physician: Shahab Wyman Consults: 07/09/18 15:30 Consult Physician Stat Consulting Provider: Shaji Martinez Consult Reason/Comments: mass on upper palate Do you want consulting provider notified?: Already Contacted Primary care physician: Stated None Hospital Course: Patient is doing very well day 2. She is involuting, voiding, and she is tolerating her diet. She voices no complaints and is requesting discharge home today. Her vital signs are stable and she is afebrile. Heart regular, lungs clear, extremities are without pain. All questions are answered for her and discharge instructions were thoroughly reviewed. Abdomen is soft uterus is firm below the umbilicus and lochia is reported to be light. Assessment day 2. Plan discharge to home follow up in 6 weeks. Patient Condition at Discharge: Good Plan - Discharge Summary New Discharge Prescriptions: New Ibuprofen [Motrin] 600 mg PO Q6HR PRN #30 tab PRN Reason: Pain No Action Pnv,Calcium 72/Iron/Folic Acid [ Plus Tablet] 1 tab PO DAILY Discharge Medication List Pnv,Calcium 72/Iron/Folic Acid [ Plus Tablet] 1 tab PO DAILY 08/24/16 [History] Ibuprofen [Motrin] 600 mg PO Q6HR PRN #30 tab 07/10/18 [Rx] Follow up Appointment(s)/Referral(s): Shahab Wyman DO [Doctor of Osteopathic Medicine] - 6 Weeks Activity/Diet/Wound Care/Special Instructions: no heavy lifting, limit stairs and driving, pelvic rest. call for any high temperatures, heavy bleeding, or severe pain
[2018-07-11 09:25] VITALS: BP 120/72; PULSE 98; RESP 18; TEMP 97
== END 2018-07-11 10:45 | disposition home or self-care (01) | DRG 807 ==
LOC: FBPOP 11:44 → 4FBP 12:58
PROVIDERS: ADMIT Obstetrics & Gynecology; ATTEND Obstetrics & Gynecology
PROC: 10E0XZZ Delivery of Products of Conception, External Approach (ICD-10-PCS; principal; 2018-07-09)
PROC: 0KQM0ZZ Repair Perineum Muscle, Open Approach (ICD-10-PCS; 2018-07-09)
PROC: 00HU33Z Insertion of Infusion Device into Spinal Canal, Percutaneous Approach (ICD-10-PCS; 2018-07-09)
PROC: 3E0R3BZ Introduction of Anesthetic Agent into Spinal Canal, Percutaneous Approach (ICD-10-PCS; 2018-07-09)
DX: O69.81X0 Labor and delivery complicated by cord around neck, without compression, not applicable or unspecified (principal); Z37.0 Single live birth; O70.1 Second degree perineal laceration during delivery; Z3A.39 39 weeks gestation of pregnancy; K13.4 Granuloma and granuloma-like lesions of oral mucosa; Z79.899 Other long term (current) drug therapy
CPT/HCPCS: 59025; 85025; 88307; 99213

== ENCOUNTER 2021-03-14 23:06 | Emergency (ER) | payer BC, OTHER ==
[2021-03-15 00:29] VITALS: BP 154/76; PULSE 82; RESP 18; TEMP 98.4
--- NOTE | 2021-03-15 00:34 | ED ---
General Adult HPI - General Stated complaint: Anxiety Time Seen by Provider: 03/15/21 00:32 Source: patient Mode of arrival: ambulatory Limitations: no limitations - History of Present Illness Initial comments: 31 year-old female patient presents for increased anxiety. States her tested positive for COVID yesterday. States that this is making her very anxious. She had panic attack on the way home from work. States she felt like she was having shortness of breath, chest tightness, and hand tingling. States that she has had anxiety in the past. Denies any chest pain. Did take her 's xanax which did help her symptoms. She denies any suicidal or homicidal ideation. - Related Data Home Medications Medication Instructions Recorded Confirmed Pnv,Calcium 72/Iron/Folic Acid 1 tab PO DAILY 08/24/16 07/09/18 [ Plus Tablet] Previous Rx's Medication Instructions Recorded Ibuprofen [Motrin] 600 mg PO Q6HR PRN #30 tab 07/10/18 LORazepam [Ativan] 1 mg PO BID 3 Days #6 tab 03/15/21 Allergies Allergy/AdvReac Type Severity Reaction Status Date / Time No Known Allergies Allergy Verified 03/15/21 00:29 Review of Systems ROS Statement: Those systems with pertinent positive or pertinent negative responses have been documented in the HPI. ROS Other: All systems not noted in ROS Statement are negative. Past Medical History Past Medical History: No Reported History History of Any Multi-Drug Resistant Organisms: None Reported Past Surgical History: Adenoidectomy Additional Past Surgical History / Comment(s): [place] tooth surgery Past Anesthesia/Blood Transfusion Reactions: No Reported Reaction Past Psychological History: No Psychological Hx Reported Smoking Status: Never smoker Past Alcohol Use History: None Reported Past Drug Use History: None Reported - Past Family History Mother Additional Family Medical History / Comment(s): Colitis and Chrons General Exam Limitations: no limitations General appearance: alert, in no apparent distress, other (This is a well- developed, well-nourished adult female in no acute distress.) ENT exam: Present: normal exam, normal oropharynx, mucous membranes moist Respiratory exam: Present: normal lung sounds bilaterally. Absent: respiratory distress, wheezes, rales, rhonchi, stridor Cardiovascular Exam: Present: regular rate, normal rhythm, normal heart sounds. Absent: systolic murmur, diastolic murmur, rubs, gallop, clicks GI/Abdominal exam: Present: soft, normal bowel sounds. Absent: distended, tenderness, guarding, rebound, rigid Neurological exam: Present: alert, oriented X3, CN II-XII intact Psychiatric exam: Present: normal affect, normal mood Skin exam: Present: warm, dry, intact, normal color. Absent: rash Course Vital Signs 03/15/21 00:23 Temperature 98.4 F Pulse Rate 82 Respiratory 18 Rate Blood Pressure 154/76 O2 Sat by Pulse 98 Oximetry Medical Decision Making - Medical Decision Making 31-year-old female patient presented for evaluation after having a panic attack. Physical examination is unremarkable. Upon arrival she is feeling better. Did take Xanax prior to coming in. Does have history of anxiety. Tested negative for COVID-19. Not having any suicidal or homicidal ideation. She'll be discharged with a short prescription for Ativan until she can see her physician. Return parameters were discussed in detail. She verbalizes unde rstanding and agrees with this plan. My attending is Dr. Wilkerson. - Lab Data Lab Results 03/15/21 Range/Units 00:35 Coronavirus (PCR) Not Detected (Not Detectd) Disposition Clinical Impression: Anxiety attack Disposition: HOME SELF-CARE Condition: Good Instructions (If sedation given, give patient instructions): Anxiety (ED), Panic Attack (ED) Additional Instructions: Take medication intermittently as needed for panic attack. Follow-up with your primary care physician for further evaluation as soon as possible. Consider outpatient counseling of anxiety continues to be a problem for you. Return for any new, worsening, or concerning symptoms. Prescriptions: LORazepam [Ativan] 1 mg PO BID 3 Days #6 tab Is patient prescribed a controlled substance at d/c from ED?: No Referrals: None,Stated [Primary Care Provider] - 1-2 days Time of Disposition: 01:41
== END 2021-03-15 01:46 | disposition home or self-care (01) ==
LOC: EC 23:06
DX: F41.8 Other specified anxiety disorders (principal)
CPT/HCPCS: 87635; 99283

== ENCOUNTER 2021-06-23 03:05 | Emergency (ER) | payer BC ==
[2021-06-23 03:49] VITALS: BP 136/89; PULSE 81; RESP 19; TEMP 98.1
--- NOTE | 2021-06-23 05:03 | ED ---
Anxiety HPI - General Chief Complaint: Anxiety Stated Complaint: Panic Attack, Fluctuating heart rate Time Seen by Provider: 06/23/21 04:26 Source: patient Mode of arrival: ambulatory - History of Present Illness Initial Comments: This patient is a 31-year-old woman who presents to be evaluated for racing heartbeat. The patient states that tonight she started feeling anxious. She therefore took a dose of Xanax. She did check her heart rate using a home monitor and it was somewhat variable. She states that at times it was up to about 140. This prompted her to come to the emergency department for evaluation. Patient states that she did take a second dose of Xanax prior to coming in and now she does feel better. She thinks that the medication is taking effect. She is not having any palpitations now. She did not have chest pain, diaphoresis, nausea or vomiting. MD Complaint: anxiety, heart racing -: hour(s) Symptoms: palpitations Place: home Previous History of Same: Yes Severity: moderate Quality: improving, similar to prior episodes Provoking factors: none known Improves With: medication Worsens With: nothing Associated symptoms: palpitations - Related Data Home Medications: Home Medications Medication Instructions Recorded Confirmed Pnv,Calcium 72/Iron/Folic Acid 1 tab PO DAILY 08/24/16 07/09/18 [ Plus Tablet] Previous Rx's Medication Instructions Recorded Ibuprofen [Motrin] 600 mg PO Q6HR PRN #30 tab 07/10/18 LORazepam [Ativan] 1 mg PO BID 3 Days #6 tab 03/15/21 Allergies/Adverse Reactions: Allergies Allergy/AdvReac Type Severity Reaction Status Date / Time No Known Allergies Allergy Verified 06/23/21 03:49 Review of Systems ROS Statement: Those systems with pertinent positive or pertinent negative responses have been documented in the HPI. ROS Other: All systems not noted in ROS Statement are negative. Constitutional: Denies: fever, chills, weakness Respiratory: Denies: cough, dyspnea, wheezes Cardiovascular: Reports: palpitations. Denies: chest pain, edema, syncope Gastrointestinal: Denies: abdominal pain, nausea, vomiting, diarrhea Genitourinary: Denies: dysuria, hematuria Musculoskeletal: Denies: back pain Skin: Denies: rash Neurological: Denies: headache Psychiatric: Reports: anxiety. Denies: depression, suicidal thoughts Past Medical History Past Medical History: No Reported History Additional Past Medical History / Comment(s): anxiety History of Any Multi-Drug Resistant Organisms: None Reported Past Surgical History: Adenoidectomy Additional Past Surgical History / Comment(s): [place] tooth surgery Past Anesthesia/Blood Transfusion Reactions: No Reported Reaction Past Psychological History: No Psychological Hx Reported Smoking Status: Never smoker Past Alcohol Use History: None Reported Past Drug Use History: None Reported - Past Family History Mother Additional Family Medical History / Comment(s): Colitis and Chrons General Exam Limitations: no limitations General appearance: alert, in no apparent distress Eye exam: Present: normal appearance Neck exam: Present: normal inspection Respiratory exam: Present: normal lung sounds bilaterally. Absent: respiratory distress, wheezes, rales, rhonchi, stridor Cardiovascular Exam: Present: regular rate, normal rhythm, normal heart sounds. Absent: systolic murmur, diastolic murmur, rubs, gallop GI/Abdominal exam: Present: soft. Absent: distended, tenderness, guarding, rebound, rigid, mass Extremities exam: Present: normal inspection Back exam: Present: normal inspection. Absent: CVA tenderness (R), CVA tenderness (L) Neurological exam: Present: alert Psychiatric exam: Present: normal affect, normal mood. Absent: agitated, anxious, suicidal ideation Skin exam: Present: warm, dry, intact, normal color. Absent: rash Course Vital Signs 06/23/21 03:20 Temperature 98.1 F Pulse Rate 81 Respiratory 19 Rate Blood Pressure 136/89 O2 Sat by Pulse 96 Oximetry Medical Decision Making - Medical Decision Making Patient is 31-year-old woman who experienced an episode of anxiety and also palpitations at home. Here she is in sinus rhythm with normal rate. She is feeling much better and declining further evaluation and treatment. Discussed appropriate further care and return parameters. - EKG Data -: EKG Interpreted by Me EKG shows normal: sinus rhythm, axis (Normal), intervals (Normal), QRS complexes (Normal), ST-T waves (Normal) Rate: normal (Rate 67 bpm) Interpretation: normal EKG Disposition Clinical Impression: Acute anxiety Disposition: HOME SELF-CARE Condition: Good Instructions (If sedation given, give patient instructions): Generalized Anxiety Disorder (ED) Is patient prescribed a controlled substance at d/c from ED?: No Referrals: Karmen Hicks DO [Primary Care Provider] - 1-2 days
== END 2021-06-23 05:25 | disposition home or self-care (01) ==
LOC: EC 03:05
DX: F41.9 Anxiety disorder, unspecified (principal)
CPT/HCPCS: 93005; 99284